=== PATIENT | female | born 1985 | race Caucasian/White ===

== ENCOUNTER 2018-06-19 11:10 | Day surgery (SDC) | payer OTHER ==
[~2018-06-19 11:10] MED LIST: Buffered Lidocaine 1% SYRIN* 1 ML/SYRINGE INTRADERM ONE; Dexamethasone IV* 4 MG/ML 1 ML (4 MG) IV SLOW PU ONE; Famotidine IV* 10 MG/ML 2 ML (20 mg) IV ONE; Lactated Ringers 1000 ML Bag* 1,000 ML IV SCH
[2018-06-19] MEDS ORDERED: Dexamethasone IV* 4 MG/ML 1 ML (4 MG) ONE (12:17)
[2018-06-19] MEDS ORDERED: Famotidine IV* 10 MG/ML 2 ML (20 mg) ONE (12:17)
[2018-06-19] MEDS ORDERED: Buffered Lidocaine 1% SYRIN* 1 ML/SYRINGE INTRADERM ONE (12:17)
[2018-06-19] MEDS ORDERED: Benzocaine/Butamben/Tetracain (CETACAINE - SINGLE USE) 5 gm TOPICAL ONE (13:09)
[2018-06-19] MEDS ORDERED: Succinylcholine* 20 MG/ML 10 ML VIAL ONE (13:21)
[2018-06-19] MEDS ORDERED: Midazolam* 1 MG/ML 2 ML VIAL (2 MG) ONE (13:21)
[2018-06-19] MEDS ORDERED: Ondansetron INJ* 2 MG/ML VIAL ONE (13:21)
[2018-06-19] MEDS ORDERED: Propofol* 10 MG/ML 20 ML BTL ONE ×2 (13:21→14:16)
[2018-06-19] MEDS ORDERED: Lidocaine 2% PF * 5 ML VIAL ONE (13:21)
[2018-06-19] MEDS ORDERED: fentaNYL* 50 MCG/ML 2 ML VIAL (100 MCG VIAL) ONE (13:21)
[2018-06-19] MEDS ORDERED: Cisatracurium* 2 MG/ML MDV 5 ML ONE (13:21)
[2018-06-19] MEDS ORDERED: diPHENhydraMINE IV* 50 MG/ML 1 ml VIAL (BENADRYL) IV PRN (14:17)
[2018-06-19] MEDS ORDERED: Naloxone* 0.4 MG/ML 1 ML VIAL IV PRN (14:17)
[2018-06-19] MEDS ORDERED: PROCHLORPERAZINE INJ 5 MG/ML 2 ML VIAL IV PRN (14:17)
[2018-06-19] MEDS ORDERED: DiMENhydriNATE IV* 50 MG/ML VIAL IV PUSH PRN (14:17)
[2018-06-19] MEDS ORDERED: HYDROcodone/ACETAMIN 5-325 MG* 1 TAB PO PRN (14:17)
[2018-06-19] MEDS ORDERED: Ondansetron INJ* 2 MG/ML VIAL IV PRN (14:17)
[2018-06-19] MEDS ORDERED: fentaNYL* 50 MCG/ML 2 ML VIAL (100 MCG VIAL) IV PRN (14:17)
[2018-06-19] MEDS ORDERED: Levalbuterol 0.63MG/3ML NEB* UNIT OF USE INH PRN (14:17)
[2018-06-19] MEDS ORDERED: Acetaminophen TAB* 325 MG PO PRN (14:17)
--- NOTE | 2018-06-19 15:02 | PRO ---
BRONCHOSCOPY REPORT: DATE OF PROCEDURE: 06/19/18 PROCEDURE PERFORMED: Bronchoscopy with endobronchial ultrasound-guided fine needle aspiration of mediastinal and hilar nodes. PREPROCEDURAL DIAGNOSIS: Mediastinal lymphadenopathy. ANESTHESIA: General anesthesia. ANESTHESIOLOGIST: Dr. Granger. DESCRIPTION OF PROCEDURE: Informed consent was obtained from the patient prior to the procedure after all the risks and benefits were thoroughly explained. The patient recently was evaluated for cough, was found to have significantly enlarged mediastinal/hilar nodes. Informed consent obtained from the patient prior to the procedure. Appropriate time-out was performed and agreed on by attending staff. A flexible Olympus bronchoscope was inserted through ET tube for airway inspection. Thin secretions were noted on both sides and were suctioned out. Evidence of mucosal irregularities noted. No endobronchial lesions noted. Bronchoscope was then withdrawn and EBUS scope was inserted. Station 7 was accessed with 4 passes. Rapid onsite evaluation reveale lymphatic tissue and granulomas. Specimen was placed in CytoLyt for cell block. Specimen was also sent for microbiological cultures. The patient tolerated the procedure well. The patient was extubated and seen in optimal condition. [id number] #: [id number] [facility]
[2018-06-19 15:53] VITALS: BP 114/77
== END 2018-06-19 15:55 | disposition home or self-care (01) ==
LOC: OR 11:10
PROVIDERS: ATTEND Internal Medicine
DX: R59.0 Localized enlarged lymph nodes (principal); J98.4 Other disorders of lung; R05 Cough; Z87.891 Personal history of nicotine dependence; L70.9 Acne, unspecified; F41.9 Anxiety disorder, unspecified
CPT/HCPCS: 81025; 87070; 87102; 87116; 87205; 87206; 88172; 88173; 88305; J0330; J1100; J2250; J2405; J2704; J3010